=== PATIENT | female | born 1990 | race Caucasian/White ===

== ENCOUNTER 2019-01-28 01:44 | Inpatient (IN) | payer OTHER ==
[~2019-01-28] VITALS: Ht 165.1 cm; Wt 62.9 kg
[2019-01-28 03:00] VITALS: BP 125/84; PULSE 77; RESP 19; Ht 165.1 cm; Wt 62.9 kg
[2019-01-28] MEDS ORDERED: LACTATED RINGER'S 1,000 ML IV SCH (03:55)
[2019-01-28] MEDS ORDERED: LACTATED RINGER'S 1,000 ML IV PRN (03:55)
[2019-01-28] MEDS ORDERED: CARBOPROST 250 MCG INJ IM PRN ×2 (04:00→09:30)
[2019-01-28] MEDS ORDERED: OXYTOCIN 30 UNITS/LR 500 ML IV PRN ×2 (04:00→09:30)
[2019-01-28] MEDS ORDERED: LIDOCAINE 1% (MPF) 30 ML INJ INJ PRN (04:00)
[2019-01-28] MEDS ORDERED: METHYLERGONOVINE 0.2 MG INJ IM PRN (04:00)
[2019-01-28] MEDS ORDERED: OXYTOCIN 30 UNITS/LR 500 ML IV SCH ×2 (04:00→07:30)
[2019-01-28] MEDS ORDERED: MISOPROSTOL 200 MCG TAB PR PRN ×2 (04:00→09:30)
[2019-01-28] MEDS ORDERED: PREN1TAB13 PO (04:33)
[2019-01-28] MEDS ORDERED: ROPIVACAINE 0.2% 100 ML ONE (04:50)
--- NOTE | 2019-01-28 04:58 | PREAC ---
Date/Time of Note Date/Time of Note DATE: 01/28/19 TIME: 04:57 Anesthesia Eval and Record Evaluation Time Pre-Procedure Interview DATE: 01/28/19 TIME: 04:57 Age 28 Sex female NPO: 8 hrs Preoperative diagnosis Labor Pain Planned procedure Labor Epidural Past Medical History Past Medical History: Includes Heme: Anemia : : (5), Para: (3), Gestational age: (30) Surgery & Anesthesia Issues No known issue Meds Anticoagulation: No Beta Jono within 24 hr: No Reason Beta Jono not given: Pt. not on B-Jono Reported Medications Pnv95/Ferrous Fumarate/FA ( Vitamins Tablet) 1 Each Tablet, 1 EACH PO, TAB 01/28/19 Current Medications Lactated Ringer's 1,000 ml @ 125 mls/hr Q8H IV Last administered on 01/28/19at 04:26; Admin Dose 125 MLS/HR; Start 01/28/19 at 03:55 Lidocaine (Xylocaine 1% (Mpf)) 30 ml ONCE PRN INJ .EPISIOTOMY; Start 01/28/19 at 04:00 Oxytocin/Lactated Ringer's 500 ml @ 500 mls/hr ONCE POST IV ; Start 01/28/19 at 04:00 Oxytocin/Lactated Ringer's 500 ml @ 125 mls/hr POST IV ; Start 01/28/19 at 04:00 Lactated Ringer's 1,000 ml @ 2,000 mls/hr Q30M PRN IV .ANESTHESIA Last administered on 01/28/19at 04:01; Admin Dose 2,000 MLS/HR; Start 01/28/19 at 03:55 Oxytocin/Lactated Ringer's 500 ml @ 0 mls/hr ONCE PRN IV .VAGINAL BLEEDING; Start 01/28/19 at 04:00 Methylergonovine Maleate (Methergine) 0.2 mg ONCE PRN IM .VAGINAL BLEEDING; Start 01/28/19 at 04:00 Carboprost Tromethamine (Hemabate) 250 mcg ONCE PRN IM .VAGINAL BLEEDING; Start 01/28/19 at 04:00 Misoprostol (Cytotec) 1,000 mcg ONCE PRN [place] .VAGINAL BLEEDING; Start 01/28/19 at 04:00 Meds reviewed: Yes Allergies Coded Allergies: No Known Allergy (Unverified , 01/28/19) Allergies Reviewed: Yes Labs/Studies Labs Reviewed: Reviewed by anesthesiologist Result Diagram: 01/28/19 0426 Laboratory Tests 01/28/19 04:26 test: Positive Studies: ECG (n/a), CXR (n/a) Pre-procedure Exam Last vitals Vital Signs Date Temp Pulse Resp B/P (MAP) Pulse Ox O2 O2 Flow FiO2 Time Delivery Rate 01/28/19 98.5 77 19 125/84 Room Air 03:00 (98) Airway: Adequate mouth opening, Adequate thyromental dist Mallampati: Mallampati II Teeth: Normal Lung: Normal Heart: Normal ASA Physical Status ASA physical status: 2 Emergency: None Planned Anesthetic Neuraxial: Epidural Planned Pain Management Epidural Pre-operative Attestations Prior to commencing anesthesia and surgery, the patient was re-evaluated, there was verification of: *The patient's identity *The results of appropriate recent lab work and preoperative vital signs *The above evaluation not changing prior to induction *Anesthetic plan, risk benefits, alternative and complications discussed with patient/family; questions answered; patient/family understands, accepts and wishes to proceed. VALERIE MAXWELL MD January 28, 2019 04:58
[2019-01-28] MEDS ORDERED: NALOXONE (0.4 MG/ML) INJ IV PRN (05:00)
[2019-01-28] MEDS ORDERED: ROPIVACAINE 0.2% 100ML BAG EPI SCH (05:00)
--- NOTE | 2019-01-28 05:00 | PAC ---
Date/Time of Note Date/Time of Note DATE: 01/28/19 TIME: 05:00 Post-Anesthesia Notes Post-Anesthesia Note Last documented vital signs Vital Signs Date Temp Pulse Resp B/P (MAP) Pulse Ox O2 O2 Flow FiO2 Time Delivery Rate 01/28/19 98.5 77 19 125/84 100 Room Air 05:00 (98) Activity: WNL Respiratory function: WNL Cardiovascular function: WNL Mental status: Baseline Pain reasonably controlled: Yes Hydration appropriate: Yes Nausea/Vomiting absent: Yes VALERIE MAXWELL MD January 28, 2019 05:00
[2019-01-28] MEDS: OXYTOCIN 30 UNITS/LR 500 ML IV SCH ×2 (08:53→12:24)
--- NOTE | 2019-01-28 09:11 | HP ---
Date/Time of Note Date/Time of Note DATE: 01/28/19 TIME: 09:10 OB - History Hx of Present Free Text/Dictation 28 YO who was admitted in active labor. EDC 02/11/2019 with IUP at 38 weeks Care: Good Care Ultrasounds: Normal mid trimester US Obstetrical Complications: None Medical Complications: None Past Family/Social History * Past Medical, Surgical, Family and Obstetric Histories reviewed from chart. OB Admission Exam Vital Signs Vital Signs Vital Signs Date Temp Pulse Resp B/P (MAP) Pulse Ox O2 O2 Flow FiO2 Time Delivery Rate 01/28/19 98.5 77 19 125/84 Room Air 03:00 (98) Physical Exam HEENT: WNL Heart: Rhythm Normal Lungs: Clear, Equal Abdomen: WNL Extremities: Normal Reflexes: Normal Cervical Dilatation: 6cm Last 72 hours Lab Results CBC & BMP 01/28/19 04:26 OB Assessment/Plan Reason for admission: active labor Plan: Expectant Management ALEXANDRIA NEWELL MD January 28, 2019 09:11
--- NOTE | 2019-01-28 09:13 | LDN ---
Date/Time of Note Date/Time of Note DATE: 01/28/19 TIME: 09:11 Delivery Summary 28 YO with IUP at 38 weeks with EDC 02/11/2019 s/p of viable . After delivery of the head the rest of the body delivered easily. I did not apply excessive traction. Placenta delivered spontaneously and intact. evaluation of the placenta confirmed intact placenta. Uterus was firm with cervix closed on exam Placenta Delivered: Spontaneously Meconium: none Episiotomy: No Perineal laceration: 1 Laceration repair: 2-0 Chromic used in normal fashion Anesthesia type: Local Estimated blood loss: 300 Sponge & Needle done & correct: Yes All needle counts correct: Yes Any foreign bodies felt in the: No Infant Delivery Information Sex Sex: female Apgars 1 Minute: 9 5 Minute: 9 Suctioning Nose & mouth suctioned at nneka: No Delee suction performed: No Umbilical Cord Umbilical cord with: 3 Vessels Cord presentations: no nuchal cord Nuchal cord present X: 0 Cord Blood was obtained: Yes Mother & Baby Disposition Disposition Mom & Baby to Maternity; Good: Yes ALEXANDRIA NEWELL MD January 28, 2019 09:13
[2019-01-28] MEDS ORDERED: SENNA/DOCUSATE NA (8.6MG/50MG) TAB PO PRN (09:30)
[2019-01-28] MEDS ORDERED: ONDANSETRON 4 MG TAB PO PRN (09:30)
[2019-01-28] MEDS ORDERED: BENZOCAINE 20% 56 ML SPRAY TOP PRN (09:30)
[2019-01-28] MEDS ORDERED: DIPHENHYDRAMINE 25 MG CAP PO PRN (09:30)
[2019-01-28] MEDS ORDERED: HYDROCODONE/APAP (5/325) TAB PO PRN ×2 (09:30)
[2019-01-28] MEDS ORDERED: ONDANSETRON 4 MG INJ IV PRN (09:30)
[2019-01-28] MEDS ORDERED: DIPHENHYDRAMINE 50 MG INJ IV PRN (09:30)
[2019-01-28] MEDS ORDERED: LANOLIN HPA 1 PKT TOP PRN (09:30)
[2019-01-28] MEDS ORDERED: WITCH HAZEL/GLYCERIN PAD PR PRN (09:30)
[2019-01-28] MEDS ORDERED: NA PHOSPHATE/BIPHOS 133 ML ENEMA PR PRN (09:30)
[2019-01-28] MEDS ORDERED: MAGNESIUM HYDROXIDE 30ML CUP PO PRN (09:30)
[2019-01-28] MEDS ORDERED: DIBUCAINE 1% 30 GM OINT TOP PRN (09:30)
[2019-01-28 10:30] VITALS: BP 138/75; PULSE 58; RESP 18
[2019-01-28 12:00] VITALS: BP 128/72; PULSE 64; RESP 16
[2019-01-28] MEDS ORDERED: IBUPROFEN 600 MG TAB PO SCH (12:00)
[2019-01-28] MEDS: IBUPROFEN LIQUID (PED) 20 MG/ML CUP PO SCH ×2 (13:47→21:00)
[2019-01-28 16:00] VITALS: BP 147/74; PULSE 61; RESP 16
[2019-01-28] MEDS: LACTATED RINGER'S 1,000 ML IV* SCH ×2 (16:34→17:08)
[2019-01-28 20:30] VITALS: BP 106/81; PULSE 59; RESP 18
[2019-01-28] MEDS: SENNA/DOCUSATE NA (8.6MG/50MG) TAB PO SCH (21:00)
[2019-01-29] MEDS: LACTATED RINGER'S 1,000 ML IV* SCH (01:08)
[2019-01-29] MEDS: IBUPROFEN LIQUID (PED) 20 MG/ML CUP PO SCH ×5 (02:39→23:50)
[2019-01-29 04:00] VITALS: BP 104/73; PULSE 63; RESP 17
--- NOTE | 2019-01-29 07:42 | DS ---
Date/Time of Note Date/Time of Note DATE: 01/29/19 TIME: 07:41 Obstetrical Discharge Record Final Diagnosis Final Diagnosis: Term delivered Vaginal Delivery Obstetrical Delivery: Spontaneous Complications Augmentation: Yes Induction: No Rupture of Membranes: No Condition on Discharge Physical Assessment Voiding: Yes Bowel Movement: Yes Breast: Soft, non-tender, Filling Fundus: Firm Abdomen and Incision: soft, not tender Calf Tenderness: No Patient Condition: Good ALEXANDRIA NEWELL MD January 29, 2019 07:42
[2019-01-29 08:00] VITALS: BP 100/68; PULSE 57; RESP 16
[2019-01-29] MEDS: SENNA/DOCUSATE NA (8.6MG/50MG) TAB PO SCH ×2 (09:00→21:49)
[2019-01-29 16:11] VITALS: BP 114/78; PULSE 66; RESP 16
[2019-01-29 20:45] VITALS: BP 104/67; PULSE 70; RESP 18
[2019-01-30 04:00] VITALS: BP 104/73; PULSE 63; RESP 18
[2019-01-30] MEDS: IBUPROFEN LIQUID (PED) 20 MG/ML CUP PO SCH ×2 (05:43→11:58)
[2019-01-30 08:00] VITALS: BP 115/75; PULSE 64; RESP 20
[2019-01-30] MEDS ORDERED: DIPHTH/TET/ACEL PERTUSS (ADULT) 0.5 ML VIAL IM* ONE (09:00)
[2019-01-30] MEDS ORDERED: VARICELLA VACCINE LIVE/PF 1,350 UNIT/0.5 ML ML SC* ONE (09:00)
[2019-01-30] MEDS ORDERED: MEASLES,MUMPS,RUBELLA VACCINE INJ SC* ONE (09:00)
[2019-01-30] MEDS: SENNA/DOCUSATE NA (8.6MG/50MG) TAB PO SCH (09:00)
--- NOTE | 2019-01-31 16:49 | DELSUM ---
Delivery Summary A-C Datetime Report Generated by CPN: 01/31/2019 16:49 DELIVERY PERSONNEL [employer] Operation: GERI, HANH MATERNAL INFORMATION Delivery Anesthesia: Epidural Medications in Delivery: LR 30 UNITS PITOCIN Delivery QBL (ml): 325 Placenta Cultured: No Maternal Complications: None LABOR SUMMARY EDC: 02/11/2019 00:00 No. Babies in Womb: 1 Attempted: No Labor Anesthesia: Epidural LABOR INFORMATION Reason for Induction: Not Applicable Onset of Labor: 01/28/2019 04:00 Complete Dilatation: 01/28/2019 07:59 Oxytocin: Augmentation Group B Beta Strep: Negative Antibiotics # of Doses: 0 Steroids Given: None Reason Steroids Not Administered: Not Applicable MEMBRANES Membranes Rupture Method: Artificial Rupture of Membranes: 01/28/2019 06:54 Length of Rupture (hr): 1.15 Amniotic Fluid Color: Clear Amniotic Fluid Amount: Large Amniotic Fluid Odor: None STAGES OF LABOR Stage 1 hr: 3 Stage 1 min: 59 Stage 2 hr: 0 Stage 2 min: 4 Stage 3 hr: 0 Stage 3 min: 6 Total Time in Labor hr: 4 Total Time in Labor min: 9 VAGINAL DELIVERY Episiotomy: None Laceration Extension: First Degree Laceration Type: Perineal Laceration Repair: Yes Initial Vag Sponge Count: 10 Final Vag Sponge Count: 10 Initial Vag Sharps Count: 1 Final Vag Sharps Count: 1 Sponge Count Correct: Yes; Vaginal Sweep Performed Sharps Count Correct: Yes BABY A INFORMATION Infant Delivery Date/Time: 01/28/2019 08:03 Method of Delivery: Vaginal Born in Route : No : N/A Forceps: N/A Vacuum Extraction: N/A Shoulder Dystocia : N/A SHOULDER DYSTOCIA BABY A Infant Delivery Date/Time: 01/28/2019 08:03 PRESENTATION/POSITION BABY A Presentation: Cephalic Cephalic Presentation: Vertex Breech Presentation: N/A PLACENTA INFORMATION BABY A Placenta Delivery Time : 01/28/2019 08:09 Placenta Method of Delivery: Spontaneous Placenta Status: Delivered SCORES BABY A Heart Rate 1 min: >100 bpm Resp Effort 1 min: Good Cry Reflex Irritability 1 min: Cough/Sneeze/Pulls Away Muscle Tone 1 min: Active Motion Color 1 min: Body [place], Extremit Blue Resuscitation Effort 1 min: Tactile Stimulation SCORE 1 MIN: 9 Heart Rate 5 min: >100 bpm Resp Effort 5 min: Good Cry Reflex Irritability 5 min: Cough/Sneeze/Pulls Away Muscle Tone 5 min: Active Motion Color 5 min: Body [place], Extremit Blue Resuscitation Effort 5 min: Tactile Stimulation SCORE 5 MIN: 9 INFANT INFORMATION BABY A Gestational Age at Delivery: 38.0 Gestational Status: Early Term- 37- 38.6 Weeks Outcome : Liveborn Infant Condition : Stable Infant Sex: Female IDENTIFICATION/MEDS BABY A ID Band Number: [id number] ID Band Location: Right Leg; Left Arm Sensor Applied: Yes Sensor Number: [id number] Sensor Location : Cord Clamp Vitamin K Given : Not Given Erythromycin Given: Not Given WEIGHT/LENGTH BABY A Birthweight (gm): 3055 Weight (lb): 6 Infant Weight (oz): 12 Infant Length (in): 19.00 Infant Length (cm): 48.26 CORD INFORMATION BABY A No. Cord Vessels: 3 Nuchal Cord : N/A Cord Blood Taken: Yes Suction: Mouth; Nose ASSESSMENT BABY A Infant Complications: None Physical Findings at Delivery: Within Normal Limits Infant Respirations: Appears Normal Culturist/ALS Called : No Infant Care By: RN Transferred To: Remains with Mother
== END 2019-01-30 14:20 | disposition home or self-care (01) | DRG 807 ==
LOC: OBT 01:44 → L-D 01:44 → OBT 02:45 → L-D 02:45 → PP1 09:55
PROVIDERS: ADMIT Obstetrics & Gynecology; ATTEND Specialist
PROC: 10E0XZZ Delivery of Products of Conception, External Approach (ICD-10-PCS; principal; 2019-01-28)
PROC: 0HQ9XZZ Repair Perineum Skin, External Approach (ICD-10-PCS; 2019-01-28)
DX: O70.0 First degree perineal laceration during delivery (principal); Z37.0 Single live birth; Z3A.38 38 weeks gestation of pregnancy
CPT/HCPCS: 62322; 85025; 85610; 85730; 86592; 86850; 86900; 86901; 87340; 90716; G0463; J2590; J2795; J7120